=== PATIENT | male | born 1995 | race Caucasian/White ===

== ENCOUNTER 2021-12-29 13:30 | Emergency (ER) | payer MEDICAID ==
[~2021-12-29] VITALS: Ht 185.4 cm; Wt 84.0 kg
[2021-12-29 13:43] VITALS: BP 144/66
== END 2021-12-29 18:15 | disposition left against medical advice (07) ==
LOC: ER 13:30
DX: R21 Rash and other nonspecific skin eruption (principal); Z20.89 Contact with and (suspected) exposure to other communicable diseases
CPT/HCPCS: 99281